=== PATIENT | male | born 1990 ===

== ENCOUNTER 2016-08-01 14:04 | Emergency (ER) | payer OTHER ==
[2016-08-01 14:23] VITALS: BP 149/65
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
== END 2016-08-01 19:59 | disposition home or self-care (01) ==
LOC: ED 14:04
DX: S39.012A Strain of muscle, fascia and tendon of lower back, initial encounter (principal); S16.1XXA Strain of muscle, fascia and tendon at neck level, initial encounter; M79.1 Myalgia; V49.59XA Passenger injured in collision with other motor vehicles in traffic accident, initial encounter; Y93.9 Activity, unspecified; Y92.9 Unspecified place or not applicable; Y99.9 Unspecified external cause status
CPT/HCPCS: 99282